=== PATIENT | male | born 1985 | race Two or more races ===

== ENCOUNTER 2018-01-01 09:47 | Emergency (ER) | payer SELFPAY ==
[~2018-01-01] VITALS: Ht 175.3 cm; Wt 84.8 kg
[2018-01-01 10:09] VITALS: BP 119/76
[2018-01-01] MEDS ORDERED: AZITHROMYCIN 250 MG TABLET PO STA (11:20)
[2018-01-01] MEDS ORDERED: CEFTRIAXONE 500 MG VIAL IM ONE (11:30)
[2018-01-01] MEDS ORDERED: CEFTRIAXONE 500 MG VIAL ONE (11:42)
[2018-01-01] MEDS ORDERED: AZITHROMYCIN 250 MG TABLET ONE (11:42)
[2018-01-01] MEDS ORDERED: LIDOCAINE /MPF 1% VIAL 5 ML VIAL ONE (11:42)
[2018-01-01 11:44] LABS: APPEARANCE,URINE Clear (CLEAR); BILIRUBIN,URINE Negative (NEGATIVE); BLOOD, URINE Small Ery/uL (NEGATIVE); COLOR,URINE Yellow (YELLOW); KETONES,URINE Negative (NEGATIVE); LEUKOCYTE ESTERASE ,URINE Negative (NEGATIVE); NITRITE, URINE Negative (NEGATIVE); PH,URINE 5.5 (5.0-8.0); PROTEIN,URINE Negative (NEGATIVE); UGLUCOSE Negative (NEGATIVE); UROBILINOGEN,URINE 0.2 EU/dL (0.2)
[2018-01-01 11:53] LABS: RBC,URINE 0-2 /HPF (0-2); WBC,URINE 0-3 /HPF (0-3)
[2018-01-01 11:54] LABS: BACTERIA,URINE None seen /HPF (None Seen); MUCUS,URINE Moderate /LPF (None Seen); SQUAMOUS EPITHELIAL CELL,UR Rare /HPF (None Seen)
[2018-01-01] MEDS ORDERED: LIDOCAINE 0.5% HCL 50 ML VIAL IJ ONE (12:30)
== END 2018-01-01 13:18 | disposition home or self-care (01) ==
LOC: ER 09:49
DX: A63.8 Other specified predominantly sexually transmitted diseases (principal); F17.200 Nicotine dependence, unspecified, uncomplicated
CPT/HCPCS: 81001; 87081; 87491; 87591; 96372; 99284; A4606; J0696; J3490 ×2; Z7610; 81000-TC